=== PATIENT | female | born 1945 | race Caucasian/White ===

== ENCOUNTER 2016-12-13 12:37 | Emergency (ER) | payer OTHER ==
[~2016-12-13 12:37] MED LIST: ASAB PO; B121000P IM; EXCEDRIN MIGRA1 EAC1 PO; FLEXERIL5 MG PO; HCTZ25B PO; LEVOTHYROXIN75 MCG PO; LOTREL1 CA1 PO; MEDROLPAK4 PO; NORCO1 TA2 PO; ZOL50 PO
== END 2016-12-13 12:59 | disposition home or self-care (01) ==
LOC: ER 12:37
DX: S29.011A Strain of muscle and tendon of front wall of thorax, initial encounter (principal); I10 Essential (primary) hypertension; F17.200 Nicotine dependence, unspecified, uncomplicated; Z79.82 Long term (current) use of aspirin; Z79.899 Other long term (current) drug therapy; W19.XXXA Unspecified fall, initial encounter
CPT/HCPCS: 71100-LT; 99283